=== PATIENT | female | born 1930 | race Two or more races ===

== ENCOUNTER 2017-04-01 17:57 | Emergency (ER) | payer OTHER ==
[2017-04-01 21:45] VITALS: BP 121/50
== END 2017-04-01 21:45 | disposition home or self-care (01) ==
LOC: ED 17:57
DX: S02.40DA Maxillary fracture, left side, initial encounter for closed fracture (principal); S01.81XA Laceration without foreign body of other part of head, initial encounter; I10 Essential (primary) hypertension; E03.9 Hypothyroidism, unspecified; W01.10XA Fall on same level from slipping, tripping and stumbling with subsequent striking against unspecified object, initial encounter; Y93.89 Activity, other specified; Y92.89 Other specified places as the place of occurrence of the external cause; Y99.8 Other external cause status
CPT/HCPCS: 12053; 90715; J2001

== ENCOUNTER 2017-04-08 16:17 | Emergency (ER) | payer OTHER ==
[2017-04-08 18:37] VITALS: BP 121/73
== END 2017-04-08 18:37 | disposition home or self-care (01) ==
LOC: ED 16:17
DX: S01.81XD Laceration without foreign body of other part of head, subsequent encounter (principal); I25.10 Atherosclerotic heart disease of native coronary artery without angina pectoris; I10 Essential (primary) hypertension; E03.9 Hypothyroidism, unspecified; W18.39XD Other fall on same level, subsequent encounter; Y99.8 Other external cause status; Y92.89 Other specified places as the place of occurrence of the external cause

== ENCOUNTER 2017-05-18 09:45 | Emergency (ER) | payer OTHER ==
[2017-05-18 09:55] VITALS: BP 131/102
[2017-05-18 10:36] VITALS: BP 71/46
== END 2017-05-18 15:16 | disposition expired ==
LOC: ED 09:45
DX: I46.9 Cardiac arrest, cause unspecified (principal); I10 Essential (primary) hypertension; E03.9 Hypothyroidism, unspecified; Z95.1 Presence of aortocoronary bypass graft; Z86.79 Personal history of other diseases of the circulatory system
CPT/HCPCS: 82962; 83880; J7030; Q0092